=== PATIENT | male | born 1975 | race Caucasian/White ===

== ENCOUNTER 2018-01-14 15:06 | Emergency (ER) | payer OTHER ==
[~2018-01-14] VITALS: Ht 190.5 cm; Wt 88.8 kg
[2018-01-14 15:28] LABS: HEMATOCRIT 43.9 % (38.0-50.0); HEMOGLOBIN 15.1 G/DL (12.5-16.6); MCH 33.8 PG (29.0-34.0); MCHC 34.4 G/DL (30.0-36.0); MCV 98.2 FL (86-99); PLATELET COUNT 159 K/uL (156-360); RBC DIS.WIDTH-CV 14.2 % (11.8-14.6); RBC DIS.WIDTH-SD 51.8 % (39-53); RED BLOOD COUNT 4.47 M/uL (4.00-5.50); WHITE BLOOD COUNT 9.5 K/uL (4.1-10.2)
[2018-01-14 15:37] LABS: CHLORIDE 103 mEq/L (99-109); POTASSIUM 4.2 mEq/L (3.7-5.4); SODIUM 139 mEq/L (136-147)
[2018-01-14 15:38] LABS: GLUCOSE 94 mg/dL (70-99)
[2018-01-14 15:42] LABS: GFR ESTIMATE (CALCULATED) > 59 mL/min/ (58.99-99999)
[2018-01-14 15:43] LABS: UREA NITROGEN (BUN) 17 mg/dL (9-23)
[2018-01-14] MEDS ORDERED: METHADONE10 MG PO (16:06)
[2018-01-14] MEDS ORDERED: ZITHROMAX250 MG PO (16:21)
[2018-01-14 16:42] VITALS: BP 127/75
== END 2018-01-14 16:44 | disposition home or self-care (01) ==
LOC: EME 15:06
DX: J32.9 Chronic sinusitis, unspecified (principal); J06.9 Acute upper respiratory infection, unspecified; F17.200 Nicotine dependence, unspecified, uncomplicated
CPT/HCPCS: 71046; 80048; 85027; 99281; 99284

== ENCOUNTER 2018-02-06 09:42 | Emergency (ER) | payer SELFPAY ==
[~2018-02-06] VITALS: Ht 190.5 cm; Wt 88.0 kg
[~2018-02-06 09:42] MED LIST: METHADONE10 MG PO; ZITHROMAX250 MG PO
[2018-02-06 10:04] LABS: HEMATOCRIT 43.4 % (38.0-50.0); HEMOGLOBIN 14.7 G/DL (12.5-16.6); MCH 33.8 PG (29.0-34.0); MCHC 33.9 G/DL (30.0-36.0); MCV 99.8 FL (86-99); PLATELET COUNT 148 K/uL (156-360); RBC DIS.WIDTH-CV 14.5 % (11.8-14.6); RBC DIS.WIDTH-SD 53.8 % (39-53); RED BLOOD COUNT 4.35 M/uL (4.00-5.50)
[2018-02-06 10:12] LABS: ALBUMIN 4.1 g/dL (3.2-4.8); CHLORIDE 105 mEq/L (99-109); POTASSIUM 4.3 mEq/L (3.7-5.4); SODIUM 140 mEq/L (136-147)
[2018-02-06 10:14] LABS: GLUCOSE 101 mg/dL (70-99)
[2018-02-06 10:15] LABS: TOTAL PROTEIN 7.7 g/dL (6.4-8.3)
[2018-02-06 10:16] LABS: TOTAL BILIRUBIN 0.9 mg/dL (0.0-1.0)
[2018-02-06 10:18] LABS: ALKALINE PHOSPHATASE 111 IU/L (3-129); CREATININE 0.9 mg/dL (0.6-1.3); GFR ESTIMATE (CALCULATED) > 59 mL/min/ (58.99-99999)
[2018-02-06 10:19] LABS: APPEARANCE CLEAR ((CLEAR)); BILIRUBIN NEGATIVE; BLOOD NEGATIVE; COLOR YELLOW ((YELLOW)); GLUCOSE (STRIP) NEGATIVE; KETONES NEGATIVE; LEUKOCYTES NEGATIVE; NITRITE NEGATIVE; PROTEIN (STRIP) NEGATIVE; SPECIFIC GRAVITY 1.025 (1.000-1.030); UCUL ADDED? NO
[2018-02-06 10:19] LABS: UREA NITROGEN (BUN) 15 mg/dL (9-23)
[2018-02-06 10:20] LABS: AST (GOT) 41 IU/L (2-34)
[2018-02-06 10:21] LABS: ALT (GPT) 75 IU/L (3-49)
[2018-02-06] MEDS ORDERED: CIPRO500 MG PO (12:24)
[2018-02-06] MEDS ORDERED: FLAGYL500 MG PO (12:24)
[2018-02-06] MEDS ORDERED: ZOFRAN ODT4 MG PO (12:24)
[2018-02-06] MEDS ORDERED: PERCOCET 5/31 TABLET PO (12:24)
[2018-02-06 12:38] VITALS: BP 123/55
== END 2018-02-06 12:42 | disposition home or self-care (01) ==
LOC: EME 09:42
DX: K52.9 Noninfective gastroenteritis and colitis, unspecified (principal); G89.29 Other chronic pain; Z79.891 Long term (current) use of opiate analgesic; F17.200 Nicotine dependence, unspecified, uncomplicated
CPT/HCPCS: 74177; 80053; 81003; 85027; 99281; 99285; J2405

== ENCOUNTER 2018-03-13 08:46 | Emergency (ER) | payer OTHER ==
[~2018-03-13] VITALS: Ht 182.9 cm; Wt 87.1 kg
[~2018-03-13 08:46] MED LIST changes: +CIPRO500 MG PO; +FLAGYL500 MG PO; +PERCOCET 5/31 TABLET PO; +ZOFRAN ODT4 MG PO
[2018-03-13] MEDS ORDERED: NAPROXEN500 MG PO (10:41)
[2018-03-13 10:53] VITALS: BP 123/75
== END 2018-03-13 10:57 | disposition home or self-care (01) ==
LOC: EME 08:46
DX: S50.12XA Contusion of left forearm, initial encounter (principal); W18.30XA Fall on same level, unspecified, initial encounter; Y93.01 Activity, walking, marching and hiking; Y99.0 Civilian activity done for income or pay; F17.200 Nicotine dependence, unspecified, uncomplicated
CPT/HCPCS: 73090; 73110; 73564; 99281; 99283

== ENCOUNTER 2018-04-19 14:10 | Emergency (ER) | payer OTHER ==
[~2018-04-19] VITALS: Ht 190.5 cm; Wt 86.7 kg
[~2018-04-19 14:10] MED LIST changes: +NAPROXEN500 MG PO
[2018-04-19 14:24] LABS: APPEARANCE CLEAR ((CLEAR)); BILIRUBIN NEGATIVE; BLOOD NEGATIVE; COLOR YELLOW ((YELLOW)); GLUCOSE (STRIP) NEGATIVE; KETONES NEGATIVE; LEUKOCYTES NEGATIVE; NITRITE NEGATIVE; PROTEIN (STRIP) NEGATIVE; SPECIFIC GRAVITY 1.014 (1.000-1.030); UCUL ADDED? NO; UROBILINOGEN 0.2 MG/DL (0.2-1.0)
[2018-04-19 14:39] LABS: HEMATOCRIT 43.6 % (38.0-50.0); MCH 34.3 PG (29.0-34.0); MCHC 34.4 G/DL (30.0-36.0); MCV 99.8 FL (86-99); PLATELET COUNT 155 K/uL (156-360); RBC DIS.WIDTH-CV 13.9 % (11.8-14.6); RBC DIS.WIDTH-SD 51.3 % (39-53); RED BLOOD COUNT 4.37 M/uL (4.00-5.50); WHITE BLOOD COUNT 10.4 K/uL (4.1-10.2)
[2018-04-19 14:48] LABS: ALBUMIN 4.4 g/dL (3.2-4.8)
[2018-04-19 14:49] LABS: CHLORIDE 101 mEq/L (99-109); POTASSIUM 4.1 mEq/L (3.7-5.4); SODIUM 138 mEq/L (136-147)
[2018-04-19 14:51] LABS: GLUCOSE 98 mg/dL (70-99); TOTAL PROTEIN 8.2 g/dL (6.4-8.3)
[2018-04-19 14:54] LABS: ALKALINE PHOSPHATASE 104 IU/L (3-129)
[2018-04-19 14:55] LABS: CREATININE 1.1 mg/dL (0.6-1.3); GFR ESTIMATE (CALCULATED) > 59 mL/min/ (58.99-99999)
[2018-04-19 14:56] LABS: AST (GOT) 44 IU/L (2-34); UREA NITROGEN (BUN) 19 mg/dL (9-23)
[2018-04-19 14:58] LABS: ALT (GPT) 71 IU/L (3-49); LIPASE 35 U/L (1.0-51.0)
[2018-04-19] MEDS ORDERED: FLEXERIL10 MG PO (16:35)
[2018-04-19] MEDS ORDERED: MOBIC7.5 MG PO (16:35)
[2018-04-19 16:44] VITALS: BP 131/62
== END 2018-04-19 16:47 | disposition home or self-care (01) ==
LOC: EME 14:10
DX: S39.012A Strain of muscle, fascia and tendon of lower back, initial encounter (principal); K21.9 Gastro-esophageal reflux disease without esophagitis; M41.9 Scoliosis, unspecified; W01.0XXA Fall on same level from slipping, tripping and stumbling without subsequent striking against object, initial encounter; F17.200 Nicotine dependence, unspecified, uncomplicated
CPT/HCPCS: 71046; 72100; 80053; 81003; 83690; 85027; 99281; 99285; J1885